=== PATIENT | female | born 1990 | race Caucasian/White ===

== ENCOUNTER → 2017-06-05 | Outpatient (CLI) | payer OTHER | END | disposition home or self-care (01) | LOC: C.LABMFLN 08:30 | PROVIDERS: ATTEND Family Medicine | DX: N92.6 Irregular menstruation, unspecified (principal) ==

== ENCOUNTER → 2017-06-22 | Outpatient (CLI) | payer OTHER | END | disposition home or self-care (01) | LOC: C.LABSPEC 13:09 | PROVIDERS: ATTEND Obstetrics & Gynecology | DX: Z34.01 Encounter for supervision of normal first pregnancy, first trimester (principal) ==

== ENCOUNTER → 2017-06-25 | Outpatient (CLI) | payer OTHER ==
[2017-06-25 12:20] LABS: BASO % 0.2 %; BASO ABS # 0.02 K/uL (0-0.2); EOS % 0.7 %; EOS ABS # 0.07 K/uL (0-0.5); HEMATOCRIT 38.7 % (37-47); HEMOGLOBIN 13.4 g/dL (12.0-16.0); IG# 0.03 K/uL (0.00-0.02); LYMPH % 25.7 %; LYMPH ABS # 2.47 K/uL (1.2-3.4); MEAN CELL VOLUME 87.8 fL (80-100); MEAN CORPUSCULAR HEMOGLOBIN 30.4 pg (25-34); MEAN CORPUSCULAR HGB CONC 34.6 g/dl (32-36); MEAN PLATELET VOLUME 9.7 fL (7.4-10.4); MONO % 5.7 %; MONO ABS # 0.55 K/uL (0.11-0.59); NEUT % 67.4 %; NEUT ABS # 6.46 K/uL (1.4-6.5); PLATELET COUNT 264 K/uL (130-400); RED CELL DISTRIBUTION WIDTH CV 13.2 % (11.5-14.5); RED CELL DISTRIBUTION WIDTH SD 42.1 fL (36.4-46.3)
== END | disposition home or self-care (01) ==
LOC: C.LAB1850 11:01
PROVIDERS: ATTEND Obstetrics & Gynecology
DX: Z34.01 Encounter for supervision of normal first pregnancy, first trimester (principal)

== ENCOUNTER → 2017-06-25 | Outpatient (CLI) | payer OTHER | END | disposition home or self-care (01) | LOC: C.PAPS 13:29 | PROVIDERS: ATTEND Obstetrics & Gynecology | DX: Z34.01 Encounter for supervision of normal first pregnancy, first trimester (principal) ==

== ENCOUNTER 2017-07-25 17:31 | Observation (INO) | payer OTHER ==
[~2017-07-25] VITALS: Ht 160 cm; Wt 61.5 kg
[2017-07-25] MEDS ORDERED: SODIUM CHLORIDE 0.9% 1000ML 2,000 ML IV STA (18:04)
[2017-07-25 18:19] LABS: BASO % 0.3 %; BASO ABS # 0.03 K/uL (0-0.2); EOS % 0.9 %; HEMATOCRIT 36.9 % (37-47); HEMOGLOBIN 13.1 g/dL (12.0-16.0); IG# 0.03 K/uL (0.00-0.02); LYMPH % 24.1 %; LYMPH ABS # 2.81 K/uL (1.2-3.4); MEAN CELL VOLUME 87.4 fL (80-100); MEAN CORPUSCULAR HGB CONC 35.5 g/dl (32-36); MEAN PLATELET VOLUME 9.4 fL (7.4-10.4); MONO % 6.9 %; NEUT % 67.5 %; PLATELET COUNT 243 K/uL (130-400); RED CELL DISTRIBUTION WIDTH CV 13.4 % (11.5-14.5); RED CELL DISTRIBUTION WIDTH SD 42.8 fL (36.4-46.3); WHITE BLOOD COUNT 11.67 K/uL (4.8-10.8)
[2017-07-25] MEDS ORDERED: PRENTAB26 PO (18:22)
[2017-07-25] MEDS ORDERED: CLR10 PO (18:22)
[2017-07-25] MEDS ORDERED: DOXY25TA8 PO (18:22)
[2017-07-25] MEDS ORDERED: PYRI100T4 PO (18:22)
--- NOTE | 2017-07-25 18:25 | EMERGENCY ROOM VISIT NOTE ---
History Report prepared by Nidia: Robert Dangelo Under the Supervision of: Dr. Wale Garcia M.D. First contact with patient: 17:37 Chief Complaint: TACHYCARDIA Stated Complaint: ELEVATED HEARTRATE 114, SOB EARLIER-14WKS History of Present Illness The patient is a 27 year old female who presents to the Emergency Room with complaints of resolved tachycardia starting this morning around 0700 and resolving a half hour ago. The patient states that this morning she woke up and on the way to work she started to feel like her heart was racing, and she was short of breath. She notes that her heart rate was 130-140 all day, and it got up to 150. The patient states that she will occasionally have an episode of tachycardia after working out, though she states that it usually resolves within in an hour. The patient notes that she is currently 14 weeks , and she has seen her OB, and everything was fine. She notes that she has not been more anxious recently other than her leaving town for work today, though she does not feel stressed. 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 She notes that she has been eating and drinking well recently, and she denies any fever, chills, cough, congestion, and vomiting. She notes that she is nauseous with her . The patient states that she had some urinary burning four days ago, though now she is not having any burning, hematuria, vaginal bleeding, vaginal discharge, and any vaginal itching. Source of History: patient Onset: this morning around 0700 Position: other (heart) Quality: other (tachycardia) Timing: resolved Associated Symptoms: + SOB, + nausea, No fevers, No chills, No cough, No vomiting Review of Systems See HPI for pertinent positives and negatives. A total of ten systems were reviewed and were otherwise negative. Past Medical & Surgical Medical Problems: (1) Inappropriate sinus tachycardia (2) Social History Smoking Status: Never Smoker Marital Status: Housing Status: lives with family Occupation Status: employed Current/Historical Medications Scheduled Multivit/Min/Iron/Fol Ac/Pren ( Vitamin), 1 TAB PO DAILY Scheduled PRN Doxylamine Succinate (Sleep) (Unisom), 12.5 MG PO UD PRN for Nausea Loratadine (Claritin), 10 MG PO DAILY PRN for Allergy Symptoms Pyridoxine (Vitamin B6), 25 MG PO UD PRN for Nausea Allergies Coded Allergies: No Known Allergies (Verified , 04/26/09) Physical Exam Vital Signs Date Time Temp Pulse Resp B/P (MAP) Pulse Ox O2 Delivery O2 Flow Rate FiO2 07/25/17 23:01 85 20 118/71 100 Room Air 07/25/17 22:33 86 07/25/17 22:07 85 20 129/76 100 Room Air 07/25/17 21:31 85 22 114/71 98 Room Air 07/25/17 19:52 91 18 121/76 100 Room Air 07/25/17 18:30 91 16 105/76 99 Room Air 91 110/67 105 126/82 07/25/17 18:10 100 07/25/17 18:05 100 Room Air 07/25/17 18:05 100 Room Air 07/25/17 17:34 36.7 110 20 122/84 99 Room Air Physical Exam GENERAL: Awake, alert, well-appearing, in no distress HENT: Normocephalic, atraumatic. Dry mucous membranes otherwise oropharynx unremarkable. EYES: Normal conjunctiva. Sclera non-icteric. NECK: Supple. No nuchal rigidity. FROM. No JVD. RESPIRATORY: Clear to auscultation. CARDIAC: Regular rate, normal rhythm. Extremities warm and well perfused. Pulses equal. ABDOMEN: Soft, non-distended. No tenderness to palpation. No rebound or guarding. No masses. RECTAL: Deferred. MUSCULOSKELETAL: Chest examination reveals no tenderness. The back is symmetrical on inspection without obvious abnormality. There is no CVA tenderness to palpation. No joint edema. LOWER EXTREMITIES: Calves are equal size bilaterally and non-tender. No edema. No discoloration. NEURO: Normal sensorium. No sensory or motor deficits noted. SKIN: No rash or jaundice noted. Medical Decision & Procedures ER Provider Diagnostic Interpretation: Radiology results as stated below per my review and radiologist interpretation: SINGLE VIEW CHEST CLINICAL HISTORY: Dyspnea. . FINDINGS: An AP, portable, upright chest radiograph is correlated with chest CT dated 06/24/2007. The cardiomediastinal silhouette is unremarkable. The lungs and pleural spaces are clear. No pneumothorax is seen. The bony thorax is grossly intact. IMPRESSION: No active disease in the chest. Electronically signed by: Galen Quinn M.D. 07/25/2017 6:49 PM Dictated Date/Time: 07/25/2017 6:48 PM Laboratory Results 07/25/17 17:50 Red Blood Count 4.22, Mean Corpuscular Volume 87.4, Mean Corpuscular Hemoglobin 31.0, Mean Corpuscular Hemoglobin Concent 35.5, Mean Platelet Volume 9.4, Neutrophils (%) (Auto) 67.5, Lymphocytes (%) (Auto) 24.1, Monocytes (%) (Auto) 6.9, Eosinophils (%) (Auto) 0.9, Basophils (%) (Auto) 0.3, Neutrophils # (Auto) 7.90, Lymphocytes # (Auto) 2.81, Monocytes # (Auto) 0.80, Eosinophils # (Auto) 0.10, Basophils # (Auto) 0.03 07/25/17 17:50 Test 07/25/17 17:50 07/25/17 17:58 07/25/17 19:51 07/25/17 22:00 White Blood Count 11.67 K/uL (4.8-10.8) Red Blood Count 4.22 M/uL (4.2-5.4) Hemoglobin 13.1 g/dL (12.0-16.0) Hematocrit 36.9 % (37-47) Mean Corpuscular Volume 87.4 fL (80-100) Mean Corpuscular Hemoglobin 31.0 pg (25-34) Mean Corpuscular Hemoglobin Concent 35.5 g/dl (32-36) Platelet Count 243 K/uL (130-400) Mean Platelet Volume 9.4 fL (7.4-10.4) Neutrophils (%) (Auto) 67.5 % Lymphocytes (%) (Auto) 24.1 % Monocytes (%) (Auto) 6.9 % Eosinophils (%) (Auto) 0.9 % Basophils (%) (Auto) 0.3 % Neutrophils # (Auto) 7.90 K/uL (1.4-6.5) Lymphocytes # (Auto) 2.81 K/uL (1.2-3.4) Monocytes # (Auto) 0.80 K/uL (0.11-0.59) Eosinophils # (Auto) 0.10 K/uL (0-0.5) Basophils # (Auto) 0.03 K/uL (0-0.2) RDW Standard Deviation 42.8 fL (36.4-46.3) RDW Coefficient of Variation 13.4 % (11.5-14.5) Immature Granulocyte % (Auto) 0.3 % Immature Granulocyte # (Auto) 0.03 K/uL (0.00-0.02) Anion Gap 4.0 mmol/L (3-11) Estimated GFR () 132.1 Estimated GFR (Non- 114.0 BUN/Creatinine Ratio 14.1 (10-20) Calcium Level 9.0 mg/dl (8.5-10.1) Magnesium Level 1.9 mg/dl (1.8-2.4) Total Bilirubin 0.3 mg/dl (0.2-1) Direct Bilirubin < 0.1 mg/dl (0-0.2) Aspartate Amino Transf (AST/SGOT) 16 U/L (15-37) Alanine Aminotransferase (ALT/SGPT) 23 U/L (12-78) Alkaline Phosphatase 58 U/L (45-117) Total Protein 7.9 gm/dl (6.4-8.2) Albumin 3.5 gm/dl (3.4-5.0) Lipase 167 U/L (73-393) Thyroid Stimulating Hormone (TSH) 2.030 uIu/ml (0.300-4.500) Urine Color YELLOW Urine Appearance TURBID (CLEAR) Urine pH 7.0 (4.5-7.5) Urine Specific [place] 1.017 (1.000-1.030) Urine Protein NEG (NEG) Urine Glucose (UA) NEG (NEG) Urine Ketones NEG (NEG) Urine Occult Blood NEG (NEG) Urine Nitrite NEG (NEG) Urine Bilirubin NEG (NEG) Urine Urobilinogen NEG (NEG) Urine Leukocyte Esterase NEG (NEG) Urine WBC (Auto) 1-5 /hpf (0-5) Urine RBC (Auto) 0-4 /hpf (0-4) Urine Hyaline Casts (Auto) 1-5 /lpf (0-5) Urine Epithelial Cells (Auto) 5-10 /lpf (0-5) Urine Bacteria (Auto) NEG (NEG) Bedside Glucose 103 mg/dl (70-90) Troponin I 0.208 ng/ml (0-0.045) Laboratory results reviewed by me Medications Administered Medications (Trade) Dose Ordered Sig/Rebel Route Start Time Stop Time Status Last Admin Dose Admin Sodium Chloride 2,000 ml @ 999 mls/hr Q2H1M STAT IV 07/25/17 18:04 07/25/17 20:04 DC 07/25/17 18:04 999 MLS/HR Sodium Chloride 1,000 ml @ 999 mls/hr Q1H1M STAT IV 07/25/17 21:11 07/25/17 22:11 DC 07/25/17 21:20 999 MLS/HR ECG Per My Interpretation Indication: tachycardia Rate (beats per minute): 95 Rhythm: normal sinus Findings: no acute ischemic change, other (normal axis) ED Course 1754: The patient was evaluated in room C5. A complete history and physical exam was performed. Bedside ultrasound showed FHR of 170. Bedside echo showed no pericardial effusion and no gross evidence of right heart strain. 1918: I reevaluated the patient, and I updated her on the results. 1925: I discussed the patient's case with Dr. Souza - JUNIOR SOFTWARE ENGINEER, and he agrees with the plan to repeat a troponin and discuss with cardiology 2052: I discussed the patient's case with Dr. Tan - Cardiology, and he recommends repeating a third troponin at 4 hours, and if down trending and asymptomatic, then she can follow up. 2113: I reevaluated the patient and discussed the results. Medical Decision I reviewed the patient's past medical history, medications, and the nursing notes as described above. Differential diagnosis: Etiologies such as premature contractions, electrolyte abnormality, cardiac dysrhythmia, thyroid dysfunction, pulmonary embolism, infection, gastrointestinal, as well as others were entertained. The patient is a 27-year-old woman who is a at 17 weeks gestation who presents to the emergency department with episode of palpitations that has been ongoing since this morning per hpi. Of note, the patient has a friend who is a nurse who had a pulse oximetry and measured her heart rate as high as 150 bpm. However in route to emergency department the patient's symptoms improved and On arrival her heart rate was sinus in the 90s and low 100s. Patient denies any chest pain or shortness of breath. The patient does report similar episodes in the past but usually when she is exercising and typically resolve. Bedside ultrasound demonstrates active fetus with FHR of 170. Bedside echo negative for pericardial effusion and otherwise no gross evidence of RV strain with normal RV and LV size and function. Chest x-ray negative. Initial blood glucose in the 60s which resolved after letting the patient eat and was subsequently within normal limits. Troponin elevation of 0.136 however given the patient's description of symptoms today as well as previously, episode is highly suspicious for episode of SVT which could explain a mild troponin elevation. Case was discussed with Dr. Souza, JUNIOR SOFTWARE ENGINEER, who agrees with plan to recheck a delta troponin and otherwise consult with cardiology for additional recommendations. 90 minute troponin was sent to assess for clearance however was again slightly elevated to 0.177. Case was discussed with Dr. Tan, Cardiology on-call, who agrees with plan to repeat a 4 hour troponin and if does not show any downtrend it is reasonable to admit the patient for continued monitoring with telemetry. Patient's third troponin approximately 4 hours from her initial continued to demonstrate a slight increase to 0.208. However, throughout the patient's ED observation she continues to be well-appearing, denying any chest pain, palpitations, dyspnea. Thus, PE not likely. Nevertheless given the patient's uptrending troponin it is reasonable to admit the patient for further trending of troponins and observation with telemetry. Case was discussed with Dr. Sampson, [facility] hospitalist, who will evaluate the patient for admission and requests bilateral duplex to additionally rule out the risk of thrombosis in this patient. Medication Reconcilliation Current Medication List: was personally reviewed by me Blood Pressure Screening Patient's blood pressure: Normal blood pressure Consults Time Called: 1923 Consulting Physician: Dr. Souza - JUNIOR SOFTWARE ENGINEER Returned Call: 1925 I discussed the patient's case with Dr. Souza - JUNIOR SOFTWARE ENGINEER, and he agrees with the plan to repeat a troponin and discuss with cardiology Additional Consults: Time Called: 2049 Consulted Physician: Dr. Tan - Cardiology Returned Call: 2052 Additional Comments: I discussed the patient's case with Dr. Tan - Cardiology, and he recommends repeating a third troponin at 4 hours, and if down trending and asymptomatic, then she can follow up. Impression Primary Impression: Palpitations Additional Impression: Elevated troponin Scribe Attestation The scribe's documentation has been prepared under my direction and personally reviewed by me in its entirety. I confirm that the note above accurately reflects all work, treatment, procedures, and medical decision making performed by me. Departure Information Referrals Herrera Rasmussen M.D. (PCP) Patient Instructions My [facility] Problem Qualifiers
[2017-07-25 18:39] LABS: ALBUMIN 3.5 gm/dl (3.4-5.0); ALT/SGPT 23 U/L (12-78); AST/SGOT 16 U/L (15-37); BLOOD UREA NITROGEN 10 mg/dl (7-18); CARBON DIOXIDE 27 mmol/L (21-32); CREATININE 0.72 mg/dl (0.60-1.20); GLUCOSE 58 mg/dl (70-99); LIPASE 167 U/L (73-393); POTASSIUM 3.5 mmol/L (3.5-5.1); SODIUM 134 mmol/L (136-145)
--- NOTE | 2017-07-25 18:50 | DIAGNOSTIC IMAGING REPORT ---
SINGLE VIEW CHEST CLINICAL HISTORY: Dyspnea. . FINDINGS: An AP, portable, upright chest radiograph is correlated with chest CT dated 06/24/2007. The cardiomediastinal silhouette is unremarkable. The lungs and pleural spaces are clear. No pneumothorax is seen. The bony thorax is grossly intact. IMPRESSION: No active disease in the chest. Electronically signed by: Galen Quinn M.D. 07/25/2017 6:49 PM Dictated Date/Time: 07/25/2017 6:48 PM
[2017-07-25 19:03] LABS: ALKALINE PHOSPHATASE 58 U/L (45-117); TOTAL PROTEIN 7.9 gm/dl (6.4-8.2)
[2017-07-25] MEDS ORDERED: SODIUM CHLORIDE 0.9% 1000ML 1,000 ML IV STA (21:11)
--- NOTE | 2017-07-25 23:43 | History and Physical ---
History & Physical Date & Time of Service: July 25, 2017 at 23:42 Chief Complaint: Elevated Heartrate 114, Sob Earlier-14WKS Primary Care Physician: Herrera Rasmussen M.D. History of Present Illness Source: patient, family The patient is a 27-year-old 14 week female, who presents to emergency department with report of palpitations that began around 7:00 this morning, that persisted throughout the day, with heart rate measured in the 130-140 range , with a peak of 150. She did have associated shortness of breath today. She reports having brief episodes of tachycardia after working out in the past, that would usually resolve within 1 hour. 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 She reports that she continues to overall have normal food and liquid intake, however, today not as much as usual and her family and friends thought she may have been dehydrated. Her blood sugar on laboratories upon arrival in the emergency department was 58. She was also found to have elevated serial troponins, and was referred for evaluation for admission Past Medical/Surgical History Medical Problems: (1) Inappropriate sinus tachycardia (2) Family History Mother with a history of sinus tachycardia as documented on cardiac event monitor. Social History Smoking Status: Never Smoker Smokeless Tobacco Use: No Alcohol Use: none Marital Status: Housing status: lives with family Occupational Status: employed Immunizations History of Influenza Vaccine: Unknown History of Tetanus Vaccine?: Unknown History of Pneumococcal: Unknown History of Hepatitis B Vaccine: Unknown Allergies Coded Allergies: No Known Allergies (Verified , 04/26/09) Home Medications Scheduled Multivit/Min/Iron/Fol Ac/Pren ( Vitamin), 1 TAB PO DAILY Scheduled PRN Doxylamine Succinate (Sleep) (Unisom), 12.5 MG PO UD PRN for Nausea Loratadine (Claritin), 10 MG PO DAILY PRN for Allergy Symptoms Pyridoxine (Vitamin B6), 25 MG PO UD PRN for Nausea Review of Systems The patient denies chest pain, cough, lower extremity swelling, sore throat, fevers, chills, sweats, weight change, nausea, vomiting, diarrhea , constipation, abdominal pain, pelvic pain, blood in urine or stool, dysuria, urinary frequency or urgency, lightheadedness , dizziness, headache, memory loss, loss of consciousness, rash, abnormal bruising or bleeding, imbalance, focal or generalized weakness, numbness or tingling in arms or legs, generalized arthralgias or myalgias, back or neck pain, or night sweats. The review of systems is otherwise negative other than for that already noted above, and at least 10 systems have been reviewed. Physical Exam Vital Signs Date Time Temp Pulse Resp B/P (MAP) Pulse Ox O2 Delivery O2 Flow Rate FiO2 07/25/17 23:01 85 20 118/71 100 Room Air 07/25/17 22:33 86 07/25/17 22:07 85 20 129/76 100 Room Air 07/25/17 21:31 85 22 114/71 98 Room Air 07/25/17 19:52 91 18 121/76 100 Room Air 07/25/17 18:30 91 16 105/76 99 Room Air 91 110/67 105 126/82 07/25/17 18:10 100 07/25/17 18:05 100 Room Air 07/25/17 18:05 100 Room Air 07/25/17 17:34 36.7 110 20 122/84 99 Room Air The patient is awake, alert and oriented 3, well developed and well nourished, normocephalic and atraumatic, lying in bed and in no acute distress. HEENT--PERRL, EOMI, mucous membranes and oropharynx dry. Neck--supple. No JVD. No bruits. Thyroid normal, trachea midline, no adenopathy. Heart--normal S1 and S2. No murmurs, rubs or gallops. Lungs--clear bilaterally, no respiratory distress, no accessory muscle use. Abdomen--normal bowel sounds and soft. Nontender. Nondistended, no hernias or masses, no organomegaly. Extremities--no cyanosis or clubbing. No edema. There are good distal pulses b/ l. Dermatologic--normal skin turgor, normal color, no abnormal lymph nodes, no rash. Neurologic--cranial nerves II through XII grossly intact. Rheumatologic--normal range of motion. Psychiatric--normal affect. Diagnostics Laboratory Results Results Past 24 Hours Test 07/25/17 17:50 07/25/17 17:58 07/25/17 19:30 07/25/17 19:51 Range/Units White Blood Count 11.67 4.8-10.8 K/uL Red Blood Count 4.22 4.2-5.4 M/uL Hemoglobin 13.1 12.0-16.0 g/dL Hematocrit 36.9 37-47 % Mean Corpuscular Volume 87.4 80-100 fL Mean Corpuscular Hemoglobin 31.0 25-34 pg Mean Corpuscular Hemoglobin Concent 35.5 32-36 g/dl Platelet Count 243 130-400 K/uL Mean Platelet Volume 9.4 7.4-10.4 fL Neutrophils (%) (Auto) 67.5 % Lymphocytes (%) (Auto) 24.1 % Monocytes (%) (Auto) 6.9 % Eosinophils (%) (Auto) 0.9 % Basophils (%) (Auto) 0.3 % Neutrophils # (Auto) 7.90 1.4-6.5 K/uL Lymphocytes # (Auto) 2.81 1.2-3.4 K/uL Monocytes # (Auto) 0.80 0.11-0.59 K/uL Eosinophils # (Auto) 0.10 0-0.5 K/uL Basophils # (Auto) 0.03 0-0.2 K/uL RDW Standard Deviation 42.8 36.4-46.3 fL RDW Coefficient of Variation 13.4 11.5-14.5 % Immature Granulocyte % (Auto) 0.3 % Immature Granulocyte # (Auto) 0.03 0.00-0.02 K/uL Sodium Level 134 136-145 mmol/L Potassium Level 3.5 3.5-5.1 mmol/L Chloride Level 103 98-107 mmol/L Carbon Dioxide Level 27 21-32 mmol/L Anion Gap 4.0 3-11 mmol/L Blood Urea Nitrogen 10 7-18 mg/dl Creatinine 0.72 0.60-1.20 mg/dl Estimated GFR () 132.1 Estimated GFR (Non- 114.0 BUN/Creatinine Ratio 14.1 10-20 Random Glucose 58 70-99 mg/dl Calcium Level 9.0 8.5-10.1 mg/dl Magnesium Level 1.9 1.8-2.4 mg/dl Total Bilirubin 0.3 0.2-1 mg/dl Direct Bilirubin < 0.1 0-0.2 mg/dl Aspartate Amino Transf (AST/SGOT) 16 15-37 U/L Alanine Aminotransferase (ALT/SGPT) 23 12-78 U/L Alkaline Phosphatase 58 45-117 U/L Troponin I 0.136 0.177 0-0.045 ng/ml Total Protein 7.9 6.4-8.2 gm/dl Albumin 3.5 3.4-5.0 gm/dl Lipase 167 73-393 U/L Thyroid Stimulating Hormone (TSH) 2.030 0.300-4.500 uIu/ml Urine Color YELLOW Urine Appearance TURBID CLEAR Urine pH 7.0 4.5-7.5 Urine Specific [place] 1.017 1.000-1.030 Urine Protein NEG NEG Urine Glucose (UA) NEG NEG Urine Ketones NEG NEG Urine Occult Blood NEG NEG Urine Nitrite NEG NEG Urine Bilirubin NEG NEG Urine Urobilinogen NEG NEG Urine Leukocyte Esterase NEG NEG Urine WBC (Auto) 1-5 0-5 /hpf Urine RBC (Auto) 0-4 0-4 /hpf Urine Hyaline Casts (Auto) 1-5 0-5 /lpf Urine Epithelial Cells (Auto) 5-10 0-5 /lpf Urine Bacteria (Auto) NEG NEG Bedside Glucose 103 70-90 mg/dl Test 07/25/17 22:00 Range/Units Troponin I 0.208 0-0.045 ng/ml Diagnostic Radiology Patient Name: NIKKI JOHNSON Unit Number: [id number] Dictated: 07/25/171847 Transcribed: 07/25/171847 EV Printed Date/Time: [~ rep prt dt]/[~ rep prt tm] [~ rep ct labl] - [~ rep ct ivnm] [facility] [address] Dictated: 07/25/171847 Transcribed: 07/25/171847 EV Printed Date/Time: [~ rep prt dt]/[~ rep prt tm] [~ rep ct labl] - [~ rep ct ivnm] SINGLE VIEW CHEST CLINICAL HISTORY: Dyspnea. . FINDINGS: An AP, portable, upright chest radiograph is correlated with chest CT dated 06/24/2007. The cardiomediastinal silhouette is unremarkable. The lungs and pleural spaces are clear. No pneumothorax is seen. The bony thorax is grossly intact. IMPRESSION: No active disease in the chest. Electronically signed by: Galen Quinn M.D. 07/25/2017 6:49 PM Dictated Date/Time: 07/25/2017 6:48 PM The status of this report is Signed. Draft = Not yet reviewed or approved by Radiologist. Signed = Reviewed and approved by Radiologist. <AttendingPhy></AttendingPhy> <FamilyPhy></FamilyPhy> <PrimaryPhy>Herrera Rasmussen M.D.</PrimaryPhy> <UnitNumber>[id number]</UnitNumber> <VisitNumber>[id number]< /VisitNumber> <PatientName>NIKKI JOHNSON A</PatientName> <DateOfBirth>1990</DateOfBirth> <Location>C.EDC</Location> <ServiceDate>07/25/17</ServiceDate > <MNE>ESINDI</MNE> <OrderingPhy>Wale Garcia M.D.</OrderingPhy> < OrderingPhyMNE>f rep ord dr king</OrderingPhyMNE> <DictatingPhyMNE>f rep dict dr king</DictatingPhyMNE> <CCListMNE>f rep ct mne</CCListMNE> <AdmittingPhyMNE>f pt admit dr king</AdmittingPhyMNE> <AttendingPhyMNE>f pt attend dr king</ AttendingPhyMNE> <ConsultingPhyMNE>f pt consult dr king</ConsultingPhyMNE> <FamilyPhyMNE>f pt fam dr king</FamilyPhyMNE> <OtherPhyMNE>f pt other dr king</OtherPhyMNE> < PrimaryPhyMNE>f pt prim care dr king</PrimaryPhyMNE> <ReferringPhyMNE>f pt referring dr king</ReferringPhyMNE> EKG NIKKI JOHNSON ID:[id number] 25-JUL-2017 17:48:49 MN Normal sinus rhythm Low voltage QRS Borderline ECG No previous ECGs available Confirmed by OTONIEL MICHAEL ([id number]) on 07/25/2017 10:17:29 PM 25mm/s 10mm/mV 150Hz 8.0 SP2 12SL 241 ROBERT: 13 Referred by: Confirmed By: OTONIEL MICHAEL Vent. rate 95 BPM MN interval 156 ms QRS duration 84 ms QT/QTc 346/434 ms P-R-T axes 55 80 28 1990 (27 yr) Female Room: Loc:15 Training Generalist:CHARANJIT Cage ind: Impression Assessment and Plan Inappropriate sinus tachycardia-- The patient will be admitted to telemetry for serial cardiac enzymes, serial EKG's, cardiac rhythm monitoring and a 2-D echocardiogram with Dopplers. Troponins went from 0.136 to 0.177 to 0.208. Glucose went from 58 to 103 after supplementation. She also did feel somewhat better after receiving 2 L of normal saline while in the ED. 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 We will consult Dr. Belle, who was consulted by the ED over the phone tonight. The patient felt that she was completely back to her baseline by the time she left the emergency department. Hypoglycemia-- We will perform Accu-Cheks before meals and at bedtime. If she has persistent hypoglycemia, will make arrangements for patient to follow -up with endocrinology for the remainder of her . Dehydration-- Patient reports that she was initially told that she was drinking too much water , she would drink 1 gallon daily. I told her that she needs to find a happy medium somewhere between what she did on a limited basis today and her previous intake. Seasonal allergy-- Continue loratadine 10 mg p.o. daily as needed. Advanced Directives Existing Advance Directive: No Existing Living Will: No Existing Power of Speech Communication Professor: No Resuscitation Status VTE Prophylaxis Will order VTE Prophylaxis: Yes Social Service Consult None Apply
[2017-07-25] MEDS ORDERED: DEXTROSE 50% 50 ML SYR IV PRN (23:45)
[2017-07-25] MEDS ORDERED: CARBOHYDRATES FOR HYPOGLYCEMIA PO PRN (23:45)
[2017-07-25] MEDS ORDERED: GLUCOSE 40% GEL 15 GM TUBE PO PRN (23:45)
[2017-07-25] MEDS ORDERED: GLUCAGON FOR INJ 1 MG VIAL SQ PRN (23:45)
[2017-07-25] MEDS ORDERED: ACETAMINOPHEN 325 MG TAB PO PRN (23:45)
[2017-07-25] MEDS ORDERED: GLUCOSE 10 TABS/TUBE PO PRN (23:45)
[2017-07-25] MEDS ORDERED: ONDANSETRON INJ 2 MG/ML 2 ML VIAL IV PRN (23:45)
[2017-07-25] MEDS ORDERED: LORATADINE 10 MG TAB PO PRN (23:45)
[2017-07-26] MEDS ORDERED: IV FLUIDS COMPLETED PRN (00:45)
[2017-07-26 01:01] VITALS: BP 112/70; PULSE 86; TEMP 37.1; O2SAT 97; Ht 160 cm; Wt 61.5 kg
[2017-07-26] MEDS ORDERED: NURSING VERBAL MED ORDER ONE (02:00)
[2017-07-26 04:46] VITALS: BP 94/54; PULSE 79; TEMP 37.2; O2SAT 97
[2017-07-26 05:53] LABS: BASO % 0.2 %; BASO ABS # 0.02 K/uL (0-0.2); EOS % 1.2 %; EOS ABS # 0.14 K/uL (0-0.5); HEMATOCRIT 32.4 % (37-47); HEMOGLOBIN 11.2 g/dL (12.0-16.0); IG# 0.02 K/uL (0.00-0.02); LYMPH % 27.3 %; LYMPH ABS # 3.11 K/uL (1.2-3.4); MEAN CELL VOLUME 88.3 fL (80-100); MEAN CORPUSCULAR HEMOGLOBIN 30.5 pg (25-34); MEAN CORPUSCULAR HGB CONC 34.6 g/dl (32-36); MEAN PLATELET VOLUME 9.4 fL (7.4-10.4); MONO % 5.4 %; MONO ABS # 0.61 K/uL (0.11-0.59); NEUT % 65.7 %; NEUT ABS # 7.49 K/uL (1.4-6.5); PLATELET COUNT 207 K/uL (130-400); RED CELL DISTRIBUTION WIDTH CV 13.6 % (11.5-14.5); RED CELL DISTRIBUTION WIDTH SD 44.4 fL (36.4-46.3); WHITE BLOOD COUNT 11.39 K/uL (4.8-10.8)
[2017-07-26 06:04] LABS: PTT PATIENT 24.8 SECONDS (21.0-31.0)
[2017-07-26 06:24] LABS: ALBUMIN 2.7 gm/dl (3.4-5.0); ALT/SGPT 18 U/L (12-78); AST/SGOT 13 U/L (15-37); BLOOD UREA NITROGEN 10 mg/dl (7-18); CALCIUM 8.4 mg/dl (8.5-10.1); CARBON DIOXIDE 24 mmol/L (21-32); CREATININE 0.55 mg/dl (0.60-1.20); GLUCOSE 73 mg/dl (70-99); POTASSIUM 3.7 mmol/L (3.5-5.1); SODIUM 136 mmol/L (136-145)
--- NOTE | 2017-07-26 06:27 | DIAGNOSTIC IMAGING REPORT ---
VENOUS DOPPLER LWR EXT BILA HISTORY: Pain. Edema. 17wk , palpitations, elevated troponin COMPARISON STUDY: None. FINDINGS: There is normal compressibility, flow, and augmentation within the bilateral lower extremity deep venous systems. IMPRESSION: No DVT within the right or left lower extremity. The above report was generated using voice recognition software. It may contain grammatical, syntax or spelling errors. Electronically signed by: Andrew Irizarry M.D. 07/26/2017 6:26 AM Dictated Date/Time: 07/26/2017 6:26 AM
[2017-07-26] MEDS ORDERED: INSULIN ASPART 100 UNITS/ML 3 ML PEN SC SCH (06:30)
[2017-07-26 06:51] LABS: ALKALINE PHOSPHATASE 46 U/L (45-117); TOTAL PROTEIN 6.2 gm/dl (6.4-8.2)
[2017-07-26 07:52] VITALS: BP 108/68; PULSE 69; TEMP 37; O2SAT 98
[2017-07-26 08:26] LABS: CKMB 0.9 ng/ml (0.5-3.6)
[2017-07-26] MEDS ORDERED: PRENATAL VITAMIN TAB PO SCH (09:00)
--- NOTE | 2017-07-26 10:19 | Cardiology Consultation ---
Cardiology Consultation Date of Consultation: July 26, 2017. Requesting Physician: Dr. Sampson Attending Physician: Dr. Galileo Gray Reason for Consultation: Tachycardia and elevated troponin level Pt evaluation today including: conversation w/ patient, physical exam, chart review, lab review, review of studies, review of inpatient medication list, conversation w/ attending History of Present Illness Mrs. Colon is a very pleasant 27-year-old female who is currently 14 weeks . She was admitted for elevated troponin following palpitations that lasted approximately 10 hours. For the past year or so she has had intermittent palpitations and shortness of breath while exercising. There was concern that she may have exercise-induced asthma but apparently PFTs have been unremarkable. The symptoms would typically last 1 hour or less. Yesterday at approximately 7:00 a.m. while sitting, she developed palpitations feeling as though her heart was pounding and fast. There was initially shortness of breath associated with her palpitations but this resolved within approximately 2 hours. The palpitations however continued throughout the day before subsiding at approximately 5:00 p.m.. She developed chest discomfort which was described as a mild pressure for approximately 1 hour, between noon and 1:00 p.m.. The chest discomfort was a central/left-sided chest discomfort and she believes it was secondary to anxiety from her palpitations. She does not recall any specific trigger for her palpitations. She had placed a call to varnish maker earlier in the day and heard back from them at approximately 4:00 p.m.. She was instructed to report to the emergency department. Her symptoms improved as she was on her way to the emergency department and resolved by the time she was evaluated and had ECG done. She did check her pulse throughout the day manually and her heart rate ranged between 130-150. She also had her sister, and nurse, check her blood pressure and she reported that it was 100/ 70mmHg during her symptoms. She has received 2 L of normal saline while in the emergency department. There was some concern that she was dehydrated. She states that she has been eating and drinking. She had vomiting 2 weeks ago for approximately 1 week each night. It has since subsided for the past several days. She has been drinking approximately 64 oz of water per day. She denies diarrhea, fevers, chills, abdominal pain, syncope, near-syncope, orthopnea, PND, or edema. She denies fevers or chills. She does consume caffeine but only occasionally, 3 or 4 days per week, 1 or 2 cans of soda. She denies drug abuse. She currently is asymptomatic. She was admitted however due to elevated troponins. Review of systems: As above review of systems otherwise negative/unremarkable. Family History No known premature CAD. Mother has tachycardia. Social History Smoking Status: Never Smoker History of Alcohol Use: No She denies tobacco, alcohol, or drug abuse. She lives at home with her . Her is a maritime pilot an often works out of town for 2 weeks at a time in [place]. She works as a assistant activities director. She resides in [place]. Her sister is a nurse at [employer] (Diana Adams). She is currently unaccompanied in her hospital room. All Other Systems: Reviewed and Negative Allergies Coded Allergies: No Known Allergies (Verified , 04/26/09) Medications Current Inpatient Medications Medications (Trade) Dose Ordered Sig/Rebel Route Start Time Stop Time Status Last Admin Dose Admin Acetaminophen (Tylenol Tab) 650 mg Q4H PRN PO 07/25/17 23:45 08/24/17 23:44 Loratadine (Claritin Tab) 10 mg DAILY PRN PO 07/25/17 23:45 08/24/17 23:44 Prenat Multivit/ Oxygen Furnace Operator/Iron/Folic Ac ( Vitamin Tab) 1 tab DAILY PO 07/26/17 09:00 08/25/17 08:59 07/26/17 07:50 1 TAB Ondansetron HCl (Zofran Inj) 4 mg Q6H PRN IV 07/25/17 23:45 08/24/17 23:44 Carbohydrates (Carbohydrates For Hypoglycemia) 15-30 GRAMS 15 grams if BSG 54-69... UD PRN PO 07/25/17 23:45 08/24/17 23:44 Miscellaneous (Iv Fluids Completed) 1 ea PRN PRN N/A 07/26/17 00:45 07/26/18 00:44 Physical Exam Vital Signs Past 12 Hours Date Time Temp Pulse Resp B/P (MAP) Pulse Ox O2 Delivery O2 Flow Rate FiO2 07/26/17 08:30 Room Air 07/26/17 07:52 37.0 69 16 108/68 (81) 98 07/26/17 04:46 37.2 79 20 94/54 (67) 97 Room Air 07/26/17 04:15 Room Air 07/26/17 01:01 37.1 86 16 112/70 97 Room Air 07/26/17 00:19 85 20 118/71 100 07/25/17 23:01 85 20 118/71 100 Room Air 07/25/17 22:33 86 07/25/17 22:07 85 20 129/76 100 Room Air Gen.: No acute distress. Alert and oriented. HEENT: Anicteric sclera. Neck: No JVD. No bruits. Normal carotid upstrokes bilaterally. Cardiac: PMI was nondisplaced. No ventricular heave. Regular rate and rhythm. Normal S1-S2. 1/6 systolic murmur best heard at the left sternal border. No rubs or gallops. Pulmonary: Clear to auscultation bilaterally without wheezes, rales, or rhonchi. Abdomen: Soft, nontender, nondistended, with normoactive bowel sounds. No bruits noted. Extremities: 2+ radial pulses bilaterally. 2+ posterior tibialis pulses bilaterally. No edema or cyanosis. No palpable cords. No erythema. Psychiatric: Affect appears appropriate. Data Laboratory Results: Last 24 Hours Test 07/25/17 17:50 07/25/17 17:58 07/25/17 19:30 07/25/17 19:51 White Blood Count 11.67 K/uL Red Blood Count 4.22 M/uL Hemoglobin 13.1 g/dL Hematocrit 36.9 % Mean Corpuscular Volume 87.4 fL Mean Corpuscular Hemoglobin 31.0 pg Mean Corpuscular Hemoglobin Concent 35.5 g/dl Platelet Count 243 K/uL Mean Platelet Volume 9.4 fL Neutrophils (%) (Auto) 67.5 % Lymphocytes (%) (Auto) 24.1 % Monocytes (%) (Auto) 6.9 % Eosinophils (%) (Auto) 0.9 % Basophils (%) (Auto) 0.3 % Neutrophils # (Auto) 7.90 K/uL Lymphocytes # (Auto) 2.81 K/uL Monocytes # (Auto) 0.80 K/uL Eosinophils # (Auto) 0.10 K/uL Basophils # (Auto) 0.03 K/uL RDW Standard Deviation 42.8 fL RDW Coefficient of Variation 13.4 % Immature Granulocyte % (Auto) 0.3 % Immature Granulocyte # (Auto) 0.03 K/uL Sodium Level 134 mmol/L Potassium Level 3.5 mmol/L Chloride Level 103 mmol/L Carbon Dioxide Level 27 mmol/L Anion Gap 4.0 mmol/L Blood Urea Nitrogen 10 mg/dl Creatinine 0.72 mg/dl Estimated GFR () 132.1 Estimated GFR (Non- 114.0 BUN/Creatinine Ratio 14.1 Random Glucose 58 mg/dl Calcium Level 9.0 mg/dl Magnesium Level 1.9 mg/dl Total Bilirubin 0.3 mg/dl Direct Bilirubin < 0.1 mg/dl Aspartate Amino Transf (AST/SGOT) 16 U/L Alanine Aminotransferase (ALT/SGPT) 23 U/L Alkaline Phosphatase 58 U/L Troponin I 0.136 ng/ml 0.177 ng/ml Total Protein 7.9 gm/dl Albumin 3.5 gm/dl Lipase 167 U/L Thyroid Stimulating Hormone (TSH) 2.030 uIu/ml Urine Color YELLOW Urine Appearance TURBID Urine pH 7.0 Urine Specific [place] 1.017 Urine Protein NEG Urine Glucose (UA) NEG Urine Ketones NEG Urine Occult Blood NEG Urine Nitrite NEG Urine Bilirubin NEG Urine Urobilinogen NEG Urine Leukocyte Esterase NEG Urine WBC (Auto) 1-5 /hpf Urine RBC (Auto) 0-4 /hpf Urine Hyaline Casts (Auto) 1-5 /lpf Urine Epithelial Cells (Auto) 5-10 /lpf Urine Bacteria (Auto) NEG Bedside Glucose 103 mg/dl Test 07/25/17 22:00 07/26/17 05:09 07/26/17 07:01 07/26/17 07:37 Troponin I 0.208 ng/ml 0.214 ng/ml White Blood Count 11.39 K/uL Red Blood Count 3.67 M/uL Hemoglobin 11.2 g/dL Hematocrit 32.4 % Mean Corpuscular Volume 88.3 fL Mean Corpuscular Hemoglobin 30.5 pg Mean Corpuscular Hemoglobin Concent 34.6 g/dl Platelet Count 207 K/uL Mean Platelet Volume 9.4 fL Neutrophils (%) (Auto) 65.7 % Lymphocytes (%) (Auto) 27.3 % Monocytes (%) (Auto) 5.4 % Eosinophils (%) (Auto) 1.2 % Basophils (%) (Auto) 0.2 % Neutrophils # (Auto) 7.49 K/uL Lymphocytes # (Auto) 3.11 K/uL Monocytes # (Auto) 0.61 K/uL Eosinophils # (Auto) 0.14 K/uL Basophils # (Auto) 0.02 K/uL RDW Standard Deviation 44.4 fL RDW Coefficient of Variation 13.6 % Immature Granulocyte % (Auto) 0.2 % Immature Granulocyte # (Auto) 0.02 K/uL Prothrombin Time 10.0 SECONDS Prothromb Time International Ratio 1.0 Activated Partial Thromboplast Time 24.8 SECONDS Partial Thromboplastin Ratio 1.0 Sodium Level 136 mmol/L Potassium Level 3.7 mmol/L Chloride Level 106 mmol/L Carbon Dioxide Level 24 mmol/L Anion Gap 6.0 mmol/L Blood Urea Nitrogen 10 mg/dl Creatinine 0.55 mg/dl Est Creatinine Clear Calc Drug Dose 125.9 ml/min Estimated GFR () 147.9 Estimated GFR (Non- 127.6 BUN/Creatinine Ratio 17.5 Random Glucose 73 mg/dl Calcium Level 8.4 mg/dl Magnesium Level 1.6 mg/dl Total Bilirubin 0.4 mg/dl Direct Bilirubin < 0.1 mg/dl Aspartate Amino Transf (AST/SGOT) 13 U/L Alanine Aminotransferase (ALT/SGPT) 18 U/L Alkaline Phosphatase 46 U/L Total Protein 6.2 gm/dl Albumin 2.7 gm/dl Bedside Glucose 76 mg/dl Total Creatine Kinase 42 U/L Creatine Kinase MB 0.9 ng/ml Creatine Kinase MB Ratio 2.1 ECGs personally reviewed. ECG 07/25/2017 at 5:48 p.m.: Sinus rhythm at 95 bpm. ECG 07/26/2017 at 7:45 a.m.: Sinus rhythm 79 bpm. Normal ECG. Telemetry personally reviewed. No arrhythmia. Sinus rhythm. Lower Extremity Doppler: No DVT bilaterally. CXR: No acute process identified. CXR image personally reviewed. Assessment & Plan ASSESSMENT/PLAN: 1. Palpitations/tachycardia: She reports elevated pulse rate mostly 130-150 for approximately 10 hours yesterday. She has had shorter episodes in the past with exercise only however yesterday was at rest. Etiology uncertain as by the time she reported for evaluation, her symptoms and tachycardia had resolved. Recommend 30 day event monitor. Continue telemetry while hospitalized. This may represent paroxysmal arrhythmia. We discussed beta-polo therapy although a true diagnosis has not yet been identified. We discussed outpatient monitoring and prompt evaluation if symptoms return. She is agreeable to this and would prefer not to be started on any medication at this time. If an arrhythmia is identified, can then tailor treatment to specific diagnosis. 2. Elevated troponin: Elevated troponin is likely due to prolonged tachycardia of approximately 10 hours, possibly from a arrhythmia. Troponin level is not diagnostic of myocardial infarction. Follow troponins until they peak. Echocardiogram pending. Symptoms are not overly concerning for pulmonary embolism and venous Dopplers were unremarkable. 3. Chest pain and shortness of breath: The symptoms occurred after palpitations initiated and were self limited despite longer episode of palpitations. Likely secondary to the cause of her tachycardia which has not yet been identified. Echo pending. 4. Hypomagnesemia: Recommend supplementation as appropriate. 5. Disposition: If echocardiogram is unremarkable and her troponin speak without being diagnostic of myocardial infarction, she could be discharged later today. Thirty day event monitor will be arranged for her. Follow-up in [place] office with Cardiology in 1-2 months, upon completion of 30 day event monitor. Patient care has been discussed with Dr. Gray, primary hospitalist. Thank you for allowing me to participate in the care of your patient. Please call for any other questions or concerns. Sincerely, Silas Durbin M.D.
[2017-07-26] MEDS ORDERED: MAGNESIUM SULFATE 1GM / D5W 100 ML IV SCH (11:15)
[2017-07-26 11:32] VITALS: BP 107/68; PULSE 75; TEMP 36.7; O2SAT 98
--- NOTE | 2017-07-26 13:12 | Discharge Instructions ---
Discharge Instructions Date of Service July 26, 2017. Admission Reason for Admission: Inappropriate Sinus Tachycardia, Discharge Discharge Diagnosis / Problem: Sinus Tachycardia Discharge Goals Goal(s): Decrease discomfort, Improve function, Increase independence Activity Recommendations Activity Limitations: resume your previous activity . Instructions / Follow-Up Instructions / Follow-Up Sinus Tachycardia: - This is a normal rhythm just at a faster heart rate. While on monitor we did not find any other irregular rhythm but you will be set up with an event monitor to do long-term monitoring to see if you do have other heart rhythms. - Your echo (ultrasound of the heart) did not show any abnormalities to suggest issues with the heart pumping - The air shovel operator will follow-up with you in the next few weeks to review the event monitor and add medications or other interventions if it is warranted. Low Sugars: - Recommend to continue a well-balanced diet and steady weight gain for . If you are feeling lightheaded, dizzy, or run down you can always have a carb heavy snack such as granola bars to help keep sugars steady Dehydration: - You water needs may change as you progress through as well as the weather is getting warmer. - The best way to check if you are hydrated is to look at your urine. You want it to stay pale yellow to clear which means you are well hydrated. If your urine is darker then drink more until it is yellow/clear Current Hospital Diet Patient's current hospital diet: Regular Diet Discharge Diet Recommended Diet: Regular Diet Pending Studies Studies pending at discharge: no Medical Emergencies . Who to Call and When: Medical Emergencies: If at any time you feel your situation is an emergency, please call 911 immediately. . Non-Emergent Contact Non-Emergency issues call your: Primary Care Provider Call Non-Emergent contact if: you have a fever, your pain is concerning you, you have any medication questions . . "Provider Documentation" section prepared by Ryann Reyes. .
--- NOTE | 2017-07-26 15:16 | Discharge Summary ---
Discharge Summary Date of Service July 26, 2017. Discharge Summary Admission Date: July 25, 2017 at 23:42 Discharge Date: July 26, 2017 Discharge Disposition: Home Principal Diagnosis: Sinus Tachycardia Problems/Secondary Diagnoses: Medical Problems: (1) Inappropriate sinus tachycardia (2) Immunizations: Have You Had Influenza Vaccine: Unknown History of Tetanus Vaccine?: Unknown History of Pneumococcal: Unknown History of Hepatitis B Vaccine: Unknown Procedures: SINGLE VIEW CHEST FINDINGS: An AP, portable, upright chest radiograph is correlated with chest CT dated 06/24/2007. The cardiomediastinal silhouette is unremarkable. The lungs and pleural spaces are clear. No pneumothorax is seen. The bony thorax is grossly intact. IMPRESSION: No active disease in the chest. VENOUS DOPPLER LWR EXT BILA FINDINGS: There is normal compressibility, flow, and augmentation within the bilateral lower extremity deep venous systems. IMPRESSION: No DVT within the right or left lower extremity. Consultations: 1. Cardiology Medication Reconciliation Continued Medications: Doxylamine Succinate (Sleep) (Unisom) 25 Mg Tab 12.5 MG PO UD PRN for Nausea TAKE PER PACKAGE DIRECTIONS Loratadine (Claritin) 10 Mg Tab 10 MG PO DAILY PRN for Allergy Symptoms, TAB Multivit/Min/Iron/Fol Ac/Pren ( Vitamin) Tab 1 TAB PO DAILY, TAB Pyridoxine (Vitamin B6) 100 Mg Tab 25 MG PO UD PRN for Nausea, TAB TAKE PER PACKAGE DIRECTIONS Discharge Exam Review of Systems: Constitutional: No fever, No chills, No weakness, No fatigue ENT: No nasal symptoms, No sore throat Respiratory: No cough, No shortness of breath Cardiovascular: No chest pain, No palpitations Abdomen: No pain, No nausea, No vomiting, No diarrhea, No constipation Musculoskeletal: No swelling, No calf pain Genitourinary - Female: No dysuria Neurologic: No numbness/tingling Hematologic / Lymphatic: No abnormal bleeding/bruising Physical Exam: General Appearance: WD/WN, no apparent distress Eyes: sclerae normal ENT: hearing grossly normal Neck: supple, no JVD, trachea midline Respiratory/Chest: lungs clear, normal breath sounds, no respiratory distress, no accessory muscle use Cardiovascular: regular rate, rhythm, no gallop, no murmur Abdomen / GI: normal bowel sounds, non tender, soft Extremities: no calf tenderness, no pedal edema Neurologic/Psychiatric: alert, oriented x 3 Skin: normal color, warm/dry Hospital Course ADMISSION: The patient is a 27-year-old 14 week female, who presents to emergency department with report of palpitations that began around 7:00 this morning, that persisted throughout the day, with heart rate measured in the 130- 140 range, with a peak of 150. She did have associated shortness of breath today. She reports having brief episodes of tachycardia after working out in the past, that would usually resolve within 1 hour. 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 She reports that she continues to overall have normal food and liquid intake, however, today not as much as usual and her family and friends thought she may have been dehydrated. Her blood sugar on laboratories upon arrival in the emergency department was 58. She was also found to have elevated serial troponins, and was referred for evaluation for admission. HOSPITAL COURSE: Ms. Colon was admitted for tachycardia with elevated troponins. Also founds to have BSG of 58 on arrival and questioned some mild dehydration. BSGs stable but may need to be monitored if ongoing issue. She did feel better with fluid administration however labs did not support that this was solely dehydration and BUN/Cr stable. On monitor she has been in NSR mostly 80-100 but did have occ. peaks to 120. No arrhythmia appreciated. Prior to arrival her rates were 130-150 x approx. 10 hours which given the length of time she may have had some troponin leak/demand ischemia from this. However there is concern for possible arrhythmia and a 30 day event monitor is ordered. Initiation of beta blockade was discussed but deferred as an underlying etiology hasn't been established and this is reasonable. She will follow-up with [facility] [place] to review monitor and adjust plan if warranted. She is to return to the hospital if this should re-occur. Troponins have been trended and peaked at 0.214 and trending down. Echocardiogram was unremarkable for wall motion changes or function abnormality. No ischemic findings present to support an acute cardiac event. She will return home with outpatient F/U with cardiology and event monitor being sent to her residence. 2. Elevated troponin: Elevated troponin is likely due to prolonged tachycardia of approximately 10 hours, possibly from a arrhythmia. Troponin level is not diagnostic of myocardial infarction. Follow troponins until they peak. Echocardiogram pending. Symptoms are not overly concerning for pulmonary embolism and venous Dopplers were unremarkable. 3. Chest pain and shortness of breath: The symptoms occurred after palpitations initiated and were self limited despite longer episode of palpitations. Likely secondary to the cause of her tachycardia which has not yet been identified. Echo pending. 4. Hypomagnesemia: Recommend supplementation as appropriate. 5. Disposition: If echocardiogram is unremarkable and her troponin speak without being diagnostic of myocardial infarction, she could be discharged later today. Thirty day event monitor will be arranged for her. Follow-up in [place] office with Cardiology in 1-2 months, upon completion of 30 day event monitor. Patient care has been discussed with Dr. Gray, primary hospitalist. Total Time Spent: Greater than 30 minutes This includes examination of the patient, discharge planning, medication reconciliation, and communication with other providers. Discharge Instructions Please refer to the electronic Patient Visit Report (Discharge Instructions) for additional information. Additional Copies To Lulu Souza M.D.; Mariana Choi M.D.(POLE FRAMER MACHINE/OB); Herrera Rasmussen M.D.
[2017-07-26 15:38] VITALS: BP 105/71; PULSE 79; TEMP 36.6; O2SAT 100
[2017-07-26 15:58] VITALS: BP 105/71; PULSE 79; TEMP 36.6; O2SAT 100
--- NOTE | 2017-07-26 19:00 | ECHOCARDIOGRAM REPORT ---
*NOTICE TO RECEIVING LIBERTARIAN AGENCY This information is strictly Confidential and protected under [place] law. [place] law prohibits you from making any further disclosure of this information unless further disclosure is expressly permitted by the written consent of the person to whom it pertains or is authorized by law. A general authorization for the release of medical or other information is not sufficient for this purpose. Hospital accepts no responsibility if the information is made available to any other person, INCLUDING THE PATIENT. Interpretation Summary * Name: NIKKI JOHNSON Study Date: 07/26/2017 01:20 PM BP: 107/68 mmHg * Patient Location: [facility]\S\[id number]\S\2 HR: 83 * : 1990 (M/d/yyyy) Gender: Female * Age: 27 yrs Ethnicity: CA Weight: 132 lb * Ordering Physician: Joni Sampson * Referring Physician: Mariana Choi M.D.(KITMAN/OB) * Performed By: Lalita Cooper RDCS * * Reason For Study: SINUS TACHYCARDIA * -- Conclusions -- * 1. Normal left ventricular size and systolic function. EF 60-65%. No regional wall motion abnormalities. No left ventricular hypertrophy. No significant diastolic dysfunction. * 2. No significant valvular abnormalities visualized. * 3. No prior study available for comparison. Procedure Details * A complete two-dimensional transthoracic echocardiogram was performed (2D, M-mode, Doppler and color flow Doppler). Left Ventricle * Normal left ventricular size and systolic function. EF 60-65%. No regional wall motion abnormalities. No left ventricular hypertrophy. No significant diastolic dysfunction. Right Ventricle * The right ventricle is normal in size and function. * The right ventricular systolic function is normal as assessed by tricuspid annular plane systolic excursion (TAPSE) (normal >1.5 cm). Atria * The left atrial size is normal. * Right atrial size is normal. * There is no evidence of atrial septal defect, but resolution does not allow assessment for a patent foramen ovale. Mitral Valve * The mitral valve is grossly normal. * There is no mitral valve stenosis. * There is no mitral regurgitation noted. Tricuspid Valve * The tricuspid valve is not well visualized, but is grossly normal. * There is no tricuspid stenosis. * There is trace tricuspid regurgitation. Aortic Valve * The aortic valve is trileaflet. * No hemodynamically significant valvular aortic stenosis. * No aortic regurgitation is present. Pulmonic Valve * The pulmonary valve is inadequately visualized, but the Doppler data is adequate for interpretation. * There is no pulmonic valvular stenosis. * Trace pulmonic valvular regurgitation. Great Vessels * The aortic root is normal size. Pericardium/Pleural * There is no pericardial effusion. Great Vessels * Normal inferior vena cava size and collapsability with sniff indicates a normal right atrial pressure of 3 mmHg MMode 2D Measurements and Calculations IVSd 0.78 cm IVSs 1.2 cm LVIDd 4.4 cm LVIDs 3.0 cm LVPWd 0.91 cm LVPWs 1.5 cm IVS/LVPW 0.87 FS 31.8 % EDV(Teich) 87.2 ml ESV(Teich) 34.8 ml EF(Teich) 60.1 % EDV(cubed) 84.6 ml ESV(cubed) 26.8 ml EF(cubed) 68.3 % % IVS thick 50.7 % % LVPW thick 67.7 % LV mass(C)d 117.1 grams LV mass(C)s 131.7 grams SV(Teich) 52.4 ml SV(cubed) 57.8 ml Ao root diam 3.1 cm Ao root area 7.4 cm\S\2 LA dimension 2.7 cm LA/Ao 0.88 LVAd ap4 28.9 cm\S\2 LVLd ap4 8.1 cm EDV(MOD-sp4) 85.3 ml EDV(sp4-el) 87.6 ml LVAs ap4 16.6 cm\S\2 LVLs ap4 6.9 cm ESV(MOD-sp4) 33.5 ml ESV(sp4-el) 33.9 ml EF(MOD-sp4) 60.8 % EF(sp4-el) 61.3 % LVAd ap2 28.0 cm\S\2 LVLd ap2 8.1 cm EDV(MOD-sp2) 83.8 ml EDV(sp2-el) 82.0 ml LVAs ap2 15.5 cm\S\2 LVLs ap2 6.9 cm ESV(MOD-sp2) 29.7 ml ESV(sp2-el) 29.4 ml EF(MOD-sp2) 64.5 % EF(sp2-el) 64.2 % LVLd %diff 0.48 % EDV(MOD-bp) 84.3 ml LVLs %diff 0.45 % ESV(MOD-bp) 31.6 ml EF(MOD-bp) 62.5 % SV(MOD-sp4) 51.8 ml SV(MOD-sp2) 54.1 ml SV(MOD-bp) 52.8 ml SV(sp4-el) 53.7 ml SV(sp2-el) 52.6 ml Doppler Measurements and Calculations MV E max tapan 59.9 cm/sec MV A max tapan 51.1 cm/sec MV E/A 1.2 MV dec time 0.20 sec Ao V2 max 141.5 cm/sec Ao max PG 8.0 mmHg Ao max PG (full) 3.6 mmHg LV V1 max PG 4.4 mmHg LV V1 max 104.8 cm/sec
== END 2017-07-26 16:20 | disposition home or self-care (01) ==
LOC: C.EDB 17:33 → C.MED 23:42 → ENRESERV 07-26 00:11
PROVIDERS: ADMIT Hospitalist; ATTEND Internal Medicine
DX: O99.412 Diseases of the circulatory system complicating pregnancy, second trimester (principal); R00.0 Tachycardia, unspecified; Z3A.14 14 weeks gestation of pregnancy; R79.89 Other specified abnormal findings of blood chemistry

== ENCOUNTER → 2017-08-06 | Outpatient (CLI) | payer OTHER ==
[~2017-08-06] MED LIST: CLR10 PO; DOXY25TA8 PO; PRENTAB26 PO; PYRI100T4 PO
== END | disposition home or self-care (01) ==
LOC: C.LAB1850 15:36
PROVIDERS: ATTEND Obstetrics & Gynecology
DX: Z34.02 Encounter for supervision of normal first pregnancy, second trimester (principal)

== ENCOUNTER → 2017-10-29 | Outpatient (CLI) | payer OTHER ==
[~2017-10-29] MED LIST changes: +ACET-1256 PO; +AMOX875T PO; -DOXY25TA8 PO; -PYRI100T4 PO
[2017-10-29 14:04] LABS: HEMATOCRIT 32.9 % (37-47); HEMOGLOBIN 10.8 g/dL (12.0-16.0)
== END | disposition home or self-care (01) ==
LOC: C.LAB1850 11:51
PROVIDERS: ATTEND Obstetrics & Gynecology
DX: Z34.03 Encounter for supervision of normal first pregnancy, third trimester (principal)